=== PATIENT | male | born 1995 | race Caucasian/White ===

== ENCOUNTER 2017-06-13 20:30 | Emergency (ER) | payer MEDICAID, SELFPAY ==
[2017-06-13 20:31] VITALS: BP 140/86; PULSE 76; RESP 17; TEMP 36.4; O2SAT 97; BMI 25.9
--- NOTE | 2017-06-13 20:55 | RAD_ITS ---
STUDY: X-RAY - RIGHT KNEE REASON FOR EXAM: Male, 21 years old. Injury. TECHNIQUE: 4 view(s) of the knee. COMPARISON: None. FINDINGS: Normal visualized distal femur. Normal visualized proximal tibia and fibula. Normal proximal tibiofibular articulation. Normal medial femorotibial compartment. Normal lateral femorotibial compartment. Normal patellofemoral articulation. The soft tissue structures are unremarkable. RAD/Knee 4 or More Views IMPRESSION: No evidence of acute fracture or dislocation. Electronically Signed: Ki Carrillo DO at 21:32 EDT , Service support ,
--- NOTE | 2017-06-13 21:37 | ED.VISSUMM ---
- ER Visit Summary Date of Service: 06/13/17 Chief Complaint: Right knee injury History of Present Illness: The patient is a 21 M who presents with right knee pain after his dog ran into the front of his knee. He believes he hyperextended it. He is walking with antalgic gait. He has not taken anything for pain. He denies paresthesias. He denies hip or ankle pain. Physical Examination: Vital signs are unremarkable. Patient sitting upright in bed no acute distress. Head neck examination is unremarkable with no sign of trauma. Heart is regular rate and rhythm. Abdomen is soft nontender. Right lower extremity examination was tenderness of the anterior right knee, especially over the infrapatellar tendon. He is able to straight leg raise his foot off the bed. He has minimal edema over the anterior knee. There is no tenderness over the medial or lateral joint lines. He has good range of motion with slow purposeful movement. He has strong distal pulses. Test Results: Right knee x-rays reveal no evidence of fracture or dislocation. Emergency Department Course and Treatment: Patient declined anything for pain while here. He is given Ricky wrap and crutches. He is referred to orthopedics for follow-up if not improving. Treatment Plan: [] Disposition: Discharge Impression: Right knee contusion This note was generated with [employer] dictation software. It may contain incorrect words, spelling, and punctuation that were not noted in review of the chart prior to signing ED Disposition - Plan for ED Patient: Disposition: Home or Assisted Living Chief Complaint: Lower Extremity Injury Instructions: ED Sprain Knee Referrals: Gaby Barragan DO [STAFF PHYSICIAN] - 1 Week if not improving
[2017-06-13 21:54] VITALS: BP 121/63; PULSE 69; RESP 18; O2SAT 99
== END 2017-06-13 21:55 | disposition home or self-care (01) ==
PROVIDERS: Emergency Provider Emergency Medicine; Family Provider Family Medicine; PCP Family Medicine
DX: S80.01XA Contusion of right knee, initial encounter (principal); W54.1XXA Struck by dog, initial encounter; Y93.9 Activity, unspecified; Y92.9 Unspecified place or not applicable; Z72.0 Tobacco use
CPT/HCPCS: 73564; 99283

== ENCOUNTER 2018-08-25 19:31 | Emergency (ER) | payer OTHER, MEDICAID, SELFPAY ==
[2018-08-25 19:33] VITALS: BP 132/67; PULSE 85; RESP 17; TEMP 37.1; O2SAT 97; BMI 26.9
--- NOTE | 2018-08-25 20:12 | ED.VIS.GEN ---
History of Present Illness Chief Complaint: Ear Problem Informant: Patient Onset: Days, Weeks Current Severity: Moderate Narrative: Patient indicates he presents today with severe left ear pain in the ear is draining, he indicates he has had some pressure and pain behind his ears for some time now he was seen by ENT yesterday he was told he required tympanostomy tube left ear was scheduled for end of the month the right ear was unremarkable. And then today suddenly had increasing pain and drainage from the left ear. Indicates he has a long history of having tympanostomy tubes in both ears related to fluid collection he has had no trauma no fever no cough no URI symptoms symptoms he does have some fullness in his right ear that is really unchanged Past Medical History - Allergies and Home Meds Allergies/Adverse Reactions: Allergies No Known Allergies Allergy (Verified 08/25/18 19:31) Primary Care Physician: Sofia Ruiz [Primary Care Provider] - Past Medical History: - - Ear infections with multiple rounds of tympanostomy tubes bilaterally Smoking Status: Current every day smoker Review of Systems General: Denies: Chills, Fever, Sweats Eyes: Denies: Visual changes - bilaterally, Diplopia ENT: Reports: Bilateral ear pain, Left ear pain. Denies: Rhinorrhea, Sore throat Cardiovascular: Denies: Chest pain, Palpitations Respiratory: Denies: Dyspnea, Cough, Dyspnea on exertion Gastrointestinal: Denies: Abdominal pain, Nausea, Vomiting, Diarrhea, Melena, Hematochezia Genitourinary: Denies: Dysuria, Hematuria, Frequency Musculoskeletal: Denies: Back pain, Extremity Pain Skin: Denies: Rash, Wounds Neurological: Denies: Headache, Weakness, Numbness Physical Exam Vital Signs/Narrative: Vital Signs Temp Pulse Resp BP Pulse Ox 08/25/18 19:33 98.7 F 85 17 132/67 H 97 Inital Vital Signs reviewed: Yes General: Well nourished, Well developed, No Acute Distress, - - He has obvious drainage from the left canal I cannot see the left TM because of the drainage, thin watery fluid, the right TM has appears to be serous effusion the nose and HEENT exam unremarkable neck is very supple the rest of his general medical exam is unremarkable see the above Head: Normocephalic, Atraumatic Eyes: Perrl, EOMI ENT: Moist mucous membranes, No rhinorrhea Neck: Supple, Nontender Cardiovascular: Regular rate, Regular rhythm, No murmurs Respiratory: No distress, CTA bilaterally, Chest nontender Abdomen: Soft, Nontender, Nondistended, Normal bowel sounds Back: Nontender, Normal Inspection Extremities: Nontender, No edema Skin: Normal color, No rash Neurological: Alert, Oriented x3, Cranial nerves II-XII grossly intact, Normal Strength, Normal Sensation Psychological: Normal affect, Normal Mood Diagnostic/Tx/Re-eval - Medical Decision Making Given all of the above I explained the patient I believe he has a ruptured TM likely from the fluid that collected etc. he was started on amoxicillin Naprosyn, he will contact his ENT physicians tomorrow follow-up with them make them aware of the above and return for change in symptoms Final impression Left TM rupture with drainage of fluid ED Disposition - Plan for ED Patient: Diagnosis: Otitis media, serous, TM rupture Instructions: ED Rupture Eardrum Infec Prescriptions: Naproxen [Naprosyn] 500 mg PO BID PRN #20 tab Amoxicillin 500 mg PO TID #30 tab Referrals: Sofia Ruiz [Primary Care Provider] -
[2018-08-25] MEDS: Naproxen 500 MG Tablet PO (20:20)
[2018-08-25] MEDS: HYDROcodone Bitartrate/Apap 5/325 Tablet PO (20:20)
[2018-08-25] MEDS: AMOXICILLIN 500 MG CAPSULE PO (20:20)
[2018-08-25 20:51] VITALS: RESP 18
== END 2018-08-25 21:30 | disposition home or self-care (01) ==
PROVIDERS: Emergency Provider Emergency Medicine; Family Provider Family Medicine; PCP Family Medicine
DX: H65.92 Unspecified nonsuppurative otitis media, left ear (principal); H72.92 Unspecified perforation of tympanic membrane, left ear; F17.200 Nicotine dependence, unspecified, uncomplicated
CPT/HCPCS: 99283

== ENCOUNTER 2021-01-03 22:40 | Emergency (ER) | payer MEDICAID, SELFPAY ==
[2021-01-03 22:40] VITALS: BP 131/77; PULSE 71; RESP 16; TEMP 35.7; O2SAT 100; BMI 26.3
--- NOTE | 2021-01-03 23:16 | EDS_ITS ---
HPI History of Present Illness Chief Complaint: Eye Problem Informant: patient Onset/Context/Timing Location: Left Eye Onset: Days (5 days) Associated Symptoms Associated Symptoms - Eyes: Redness and - (Watering) Narrative Narrative: Patient presents secondary to piece of metal in his left eye for the past 5 days. He was working at home when he got metal in his eye. Denies some slight irritation and watering. No vision change. He does have glasses that he wears occasionally. No contacts. PFSH PFSH Medical History no medical history no medical history Home Medications amoxicillin 500 mg PO TID #30 tab 08/25/18 [Rx Last Taken Unknown] naproxen 500 mg PO BID PRN #20 tab 08/25/18 [Rx Last Taken Unknown] Allergy/AdvReac Type Severity Reaction Status Date / Time No Known Allergies Allergy Verified 08/25/18 19:31 Social History Smoking Status: Current every day smoker tobacco type: cigarettes ROS ROS ED Constitutional Constitutional ED: Denies chills or fever(s) Eyes Eyes: Reports other Details: Left eye irritation and watering ; Denies change in vision ENT ENT ED: Denies sore throat Cardiovascular Cardiovascular: Denies chest pain Respiratory/Chest Respiratory/Chest: Denies cough or dyspnea Gastrointestinal Gastrointestinal: Denies abdominal pain Neurologic Neurologic: Denies headache(s) Allergic/Immunologic Allergic/Immunologic ED: Denies urticaria EXAM Physical Exam Const Vital Signs: 01/03/21 22:40 Temperature 96.2 F L Temperature Source Temporal Pulse Rate 71 Respiratory Rate 16 Blood Pressure 131/77 H Blood Pressure Mean 95 Pulse Ox 100 Oxygen Delivery Method Room Air Positive well nourished and well developed General Appearance ED: well developed HEENT atraumatic Eyes Eyelid: other Other Details: Mild eyelid edema on the left. Conjunctiva: other Other Details: Conjunctival injection on the left with small metallic foreign body noted around the 2 or 3 o'clock position. Pupil: PERRL Direct Ophthalmoscopy: normal light reflex Neck supple Resp normal respiratory effort and clear to auscultation bilaterally Cardio regular rate and regular rhythm GI non-tender Palpation: soft Neuro oriented x3 Sensorium / Orientation: alert Skin Rashes: no rashes [facility] Treatment and Re-Evaluation Comments:: Tetracaine drops applied to the left eye. 22-gauge needle used to try to remove metallic foreign body. Small piece of the foreign body was removed but rust ring remains. Patient be given gentamicin eyedrops. I will speak with ophthalmology first thing in the morning to have patient followed up in the office. Discharge Plan Triage Chief Complaint: Eye Problem ED Provider: Anne Marie Andrade Dx/Rx/DC Orders Clinical Impression: Acute foreign body of cornea, Corneal rust ring Instructions: ED RUST RING Prescriptions: No Action amoxicillin 500 MG tablet 500 mg PO TID Qty: 30 RF: 0 naproxen 500 MG tablet 500 mg PO BID PRN Qty: 20 RF: 0 Primary Care Provider: Care Physician,No Primary Referrals: Jovon Laurent MD [STAFF PHYSICIAN] - 1 Day Care Physician,No Primary [Primary Care Provider] - Activity Restrictions/Additional Instructions: Call Dr. Laurent's office at 8 AM. I will speak with them to help arrange close follow-up. I anticipate you will be seen in the office tomorrow. Disposition Disposition: Home, Self Care
[2021-01-03] MEDS: Tetracaine 0.5% Ophthalmic Bottle 1 DRP LEFT EYE (23:31)
[2021-01-03] MEDS: Gentamicin Sulfate 1 OPTH.BTL 2 DRP LEFT EYE (23:49)
== END 2021-01-03 23:53 | disposition home or self-care (01) ==
PROVIDERS: Emergency Provider Emergency Medicine
DX: T15.02XA Foreign body in cornea, left eye, initial encounter (principal); X58.XXXA Exposure to other specified factors, initial encounter; Y93.9 Activity, unspecified; Y92.009 Unspecified place in unspecified non-institutional (private) residence as the place of occurrence of the external cause; Y99.8 Other external cause status; F17.210 Nicotine dependence, cigarettes, uncomplicated
CPT/HCPCS: 65220; 99282

== ENCOUNTER 2021-03-24 17:56 | Inpatient (IN) | payer MEDICAID, SELFPAY ==
[2021-03-24 17:59] VITALS: BP 133/76; PULSE 76; RESP 16; TEMP 36.2; O2SAT 100; BMI 24.6
[2021-03-24 19:57] VITALS: BP 132/77
[2021-03-24] MEDS: 0.9% Normal Saline 1,000 ML 1000 ML IV (20:41)
[2021-03-24 20:49] LABS: Absolute Lymphocyte Count 3.21 X10^3/uL (0.83-4.51); Absolute Neutrophil Count 7.5 X10^3/uL (2.0-7.7); Basophil# 0.06 X10^3/uL; Basophil% 0.5 % (0-1); Eosinophil# 0.55 X10^3/uL; Eosinophils% 4.5 % (0-5); Hematocrit 39.4 % (40-54); Hemoglobin 13.8 g/dL (13.0-16.5); Lymphocyte # 3.21 X10^3/ul (0.83-4.51); Lymphocyte % 26.1 % (19-41); Mean Corpuscular Hgb 30.7 pg (27.0-32.0); Mean Corpuscular Volume 87.8 fL (80-94); Mean Platelet Vol. 9.1 fl (6.2-12.0); Monocyte% 8.1 % (0-10); NRBC Flagged by Analyzer 0 % (0-5); Neutrophil # 7.45 X10^3/uL (2.7-7.7); Neutrophil % 60.6 % (47-70); Platelet Count 191 K/mm3 (150-450); RBC Distribution Width CV 12.3 % (11.6-14.6); RBC Distribution Width SD 39.7 fl (35.1-43.9); Red Blood Count 4.49 M/mm3 (4.6-6.2); White Blood Count 12.3 K/mm3 (4.4-11.0)
[2021-03-24 21:22] LABS: Anion Gap 7 (5-15); BUN 10 mg/dL (7-18); BUN/Creat Ratio 11.1 RATIO (10-20); CPK Total, Creatine Kinase 264 U/L (39-308); Calcium,Total 8.3 mg/dL (8.5-10.1); Chloride 111 mmol/L (98-107); EST Glomerular Filtration Rate 108 mL/min (>60); Est Glom Filt Rate - Afr Amer 131 mL/min (>60); Estimated Creatinine Clearance 144.61 ml/min; Glucose 89 mg/dL (74-106); Sodium Level 144 mmol/L (136-145)
[2021-03-24 21:57] LABS: Bacteria 0 SEEN /hpf (None Seen); Mucous, Urine 0 SEEN /hpf (<or=2+); Red Blood Cells-Urine 0 SEEN /hpf (0-5); Squamous Epithelial Cells - UA 0 SEEN /hpf (0-5); White Blood Cells 0 SEEN /hpf (0-5)
[2021-03-24 22:00] LABS: Color, Urine Yellow (Yellow); Glucose, Dipstick Normal (Normal); Ketone-Dipstick Negative (Negative); Leukocyte Esterase-Dipstick Negative /ul (Negative); Nitrite-Dipstick Negative (Negative); Occult Blood-Urine Negative /ul (Negative); Protein-Dipstick Negative (Negative); Urine Bilirubin Dipstick Negative (Negative); Urine Clarity Clear (Clear); Urine Urobilinogen Normal (Normal); Urine pH 6.5 (5.0 - 8.0)
[2021-03-24 22:35] LABS: Magnesium 2.2 mg/dL (1.6-2.6)
[2021-03-24] MEDS: Potassium Chloride 10mEq/100mL 10 MEQ/100 ML IV.SOLN. 100 MEQ IV BOLUS ×2 (22:45→23:57)
--- NOTE | 2021-03-24 22:48 | HP.PCM.HOS_ITS ---
HPI - General General Date of Admission: 03/24/21 HPI Narrative LUIS ANGEL LANDAVERDE, is a 25 M with a significant history of degenerative disc disease and tobacco abuse who presents to emergency department with progressively worsening weakness that started on the same day of presentation. Patient is too weak that getting up has become a chore. He reports a decrease strength in his bilateral arms. Report although he can move his legs he is unable to move his thighs. He had some back pain recently but it has resolved. He report that previously he had the same symptoms before but at that time it was after he was given steroids. Patient is on no home medications. [facility] Medical History DDD (degenerative disc disease) Smoker Home Medications NK 03/24/21 [History Last Taken Unknown] Allergy/AdvReac Type Severity Reaction Status Date / Time No Known Allergies Allergy Verified 03/24/21 18:03 Family History Other Diabetes Surgical History History of tonsillectomy History of tympanoplasty Social History Smoking Status: Current every day smoker tobacco type: cigarettes ROS ROS Narrative Constitutional: Denies fever, chills, fatigue, anorexia and change in weight Eyes: Denies blurry vision, change in eye color, change in vision, discharge from eye(s), double vision, erythema, eye pain, loss of vision or other HEENT: Denies abnormal hearing, dysphagia, ear pain, epistaxis, headache(s), hearing loss, nasal congestion, nasal discharge, post nasal drip, sinus pressure, sore throat or other Cardiovascular: Denies chest pain or palpitations. Denies dyspnea on exertion, orthopnea and paroxysmal nocturnal dyspnea Respiratory/Chest: Denies cough, excessive phlegm production, shortness of breath with exertion and wheezing Gastrointestinal: Denies abdominal pain, coffee ground emesis, constipation, diarrhea, dyspepsia, hematemesis, hematochezia, loose stools, melena, nausea, vomiting or other Genitourinary: Denies burning urination, difficulty urinating, dysuria, hematuria, nocturia, urinary frequency, urinary hesitancy, urinary incontinence, urinary urgency or other Musculoskeletal: Denies arthralgias, back pain, joint pain, joint stiffness, joint swelling, myalgias, neck pain or other Neurologic: Denies abnormal speech, confusion, disequilibrium, dizziness, focal weakness, headache(s), numbness, paresthesias, seizure-like activity, seizures, syncope, tingling, tremor(s) or other Psychiatric: Denies anxiety, depression, homicidal ideation, suicidal ideation or other Endocrinology: Denies change in body appearance, cold intolerance, excessive sweating, heat intolerance, polydipsia, polyuria or other Hematologic/Lymphatic: Denies anemia, easy bleeding, easy bruising, lymphadenopathy or other Integumentary: Denies rashes Allergic/Immunologic: Denies rhinitis, hives, eczema, asthma or other Vital Signs Vital Signs Vital Signs: 03/24/21 17:59 03/24/21 19:57 Temperature 97.2 F L Temperature Source Temporal Pulse Rate 76 Respiratory Rate 16 Blood Pressure 133/76 H 132/77 H Blood Pressure Mean 95 95 Pulse Ox 100 Oxygen Delivery Method Room Air Weight Weight: 87.09 kg Body Mass Index (BMI) 24.6 Physical Exam Narrative Physical exam: General: Well-nourished, well-developed. Head: Normocephalic, atraumatic, no tenderness Eyes: PERRLA, EOMI ENT, no trauma, moist mucous membranes, no rhinorrhea Neck: Nontender, full range of motion, no spinal tenderness, deformities, step-off CVS: Regular rate and rhythm. S1-S2 present. No murmur, gallop or rub. Respiratory : clear to auscultation bilaterally, chest wall nontender, no wheezing Abdomen: Soft, nontender, nondistended, normal bowel sounds, no masses : Deferred Back: Nontender, no CVA tenderness, no midline spinal tenderness, deformities, step-offs Extremities: Restricted range of motion of bilateral legs. Strength in left upper and left lower extremity 5 out of 5. Strength in right upper and right lower extremity 4 out of 5. Unable to move bilateral thighs against gravity Skin: Normal color, no trauma, abrasions Neuro: Alert, oriented, cranial nerves II through XII grossly intact. Psychiatry: Normal mood. Normal affect. Not depressed. Not anxious. Results Lab / Micro Data Result Diagrams: 03/24/21 20:36 03/24/21 20:36 Labs: Laboratory Results - last 24 hr 03/24/21 20:36: WBC 12.3 H, RBC 4.49 L, Hgb 13.8, Hct 39.4 L, MCV 87.8, MCH 3 0.7, MCHC 35.0, RDW Std Deviation 39.7, RDW Coeff of [place]hane 12.3, Plt Count 191, MPV 9.1, Immature Gran % (Auto) 0.200, Neut % (Auto) 60.6, Lymph % (Auto) 26.1, [place] % (Auto) 8.1, Eos % (Auto) 4.5, Baso % (Auto) 0.5, Absolute Neuts (auto) 7.5, Absolute Lymphs (auto) 3.21, Nucleated RBC % 0 03/24/21 20:36: Sodium 144, Potassium 2.0 L*, Chloride 111 H, Carbon Dioxide 26.0, Anion Gap 7, BUN 10, Creatinine 0.90, Estim Creat Clear Calc 144.61, Est GFR (MDRD) Af Amer 131, Est GFR (MDRD) Non-Af 108, BUN/Creatinine Ratio 11.1, Glucose 89, Calcium 8.3 L, Total Creatine Kinase 264 03/24/21 20:36: Magnesium 2.2 03/24/21 21:51: Urine Color Yellow, Urine Clarity Clear, Urine pH 6.5, Ur Specific [place] 1.010, Urine Protein Negative, Urine Glucose (UA) Normal, Urine Ketones Negative, Urine Occult Blood Negative, Urine Nitrite Negative, Urine Bilirubin Negative, Urine Urobilinogen Normal, Ur Leukocyte Esterase Negative, Urine RBC 0 SEEN, Urine WBC 0 SEEN, Ur Squamous Epith Cells 0 SEEN, Urine Bacteria 0 SEEN, Urine Mucus 0 SEEN Micro: Microbiology 03/24/21 20:36 Interface Orders SARS-CoV-2 Antigen (Rapid) - Final Assessment & Plan Assessment/Plan (1) Hypokalemia: (2) Bradycardia: (3) Paralysis: PLAN: Paralysis due to hypokalemia. Emergent department labs 0. Magnesium level 2.2. Query hypokalemia parotic paralysis. Received p.o. and IV potassium supplementation at the emergency department. Will place on scheduled potassium supplementation. Trend BMP. PT and OT to work with patient. Bradycardia EKG and telemetric strip showed sinus bradycardia. Potassium replacement as above. Admit today to progressive care unit and placed on telemetry. Leukocytosis Review of labs showed white count of 12.3. Likely reactive. Trend. DVT prophylaxis: With decreased mobility patient is at risk of DVT. Lovenox ordered. Charges/Coding Visit Charges Inpatient E&M: 84137 Init Hosp L2
[2021-03-24 23:02] VITALS: BP 112/73; PULSE 56; RESP 16; O2SAT 97
--- NOTE | 2021-03-24 23:40 | EX.ED.DYSGE1 ---
HPI History of Present Illness Chief Complaint: Lower Extremity Injury Informant: patient and spouse/S.O. Narrative Narrative: Patient is a 25-year-old male presenting with leg numbness, difficulty moving his legs. He notes he had some mild back pain for the past few days but that is pretty much resolved. This morning when he woke up he felt that his arms and legs were both weak. He could not really lift up his legs and had a hard time moving his arms. He notes that when he does stand up he feels aching. He is unable to lift his knees up. He denies any new physical activities. 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 He denies any urinary symptoms specifically any bowel or bladder incontinence. He denies any saddle anesthesia. Denies any rash. He denies any recent illnesses, fevers or vaccinations. He notes he is having similar a while back where he was having pain in his muscle and he was given steroids and a muscle relaxer and he seemed to get better but he notes he did not have the degree of weakness that he currently has. He denies any other complaints at this time. [facility] Medical History DDD (degenerative disc disease) Smoker Home Medications NK 03/24/21 [History Last Taken Unknown] Allergy/AdvReac Type Severity Reaction Status Date / Time No Known Allergies Allergy Verified 03/24/21 18:03 Family History Other Diabetes Surgical History History of tonsillectomy History of tympanoplasty Social History Smoking Status: Current every day smoker tobacco type: cigarettes ROS ROS ED Constitutional Constitutional ED: Denies chills or fever(s) Eyes Eyes: Denies blurry vision or change in vision ENT ENT ED: Denies rhinorrhea or sore throat Cardiovascular Cardiovascular: Denies chest pain or palpitations Respiratory/Chest Respiratory/Chest: Denies cough or dyspnea Gastrointestinal Gastrointestinal: Denies abdominal pain, nausea or vomiting Genitourinary Genitourinary ED: Denies dysuria, hematuria or urinary frequency Musculoskeletal Musculoskeletal: Reports back pain and myalgias; Denies arthralgias or neck pain Integumentary Denies rash Neurologic Neurologic: Reports weakness; Denies headache(s) or paresthesias Psychiatric Psychiatric: Denies depression EXAM Physical Exam Const Vital Signs: 03/24/21 17:59 03/24/21 19:57 03/24/21 23:02 Temperature 97.2 F L Temperature Source Temporal Pulse Rate 76 56 L Respiratory Rate 16 16 Blood Pressure 133/76 H 132/77 H 112/73 Blood Pressure Mean 95 95 86 Pulse Ox 100 97 Oxygen Delivery Method Room Air Room Air Positive well nourished and well developed General Appearance ED: well developed HEENT Reports TM's clear and moist mucous membranes Negative for tenderness Tympanic Membrane ED: Yes TM's clear Eyes PERRL and EOMs intact bilaterally Neck no lymphadenopathy and supple Neck Narrative: No meningeal signs Chest Wall inspection of chest normal Resp normal respiratory effort and clear to auscultation bilaterally Cardio regular rate, regular rhythm and no murmurs Rate: other Other Details: 2+ radial and DP pulses GI normal to inspection, nondistended, normoactive bowel sounds and no masses Back/Spine no CVA tenderness Lumbar Spine / Lower Back: Negative for lumbar spinal tenderness Extremity normal to inspection Extremity Narrative: Patient has 5 out of 5 strength in all dermatomes of the upper extremities. He has 4-5 strength with plantar dorsiflexion of the feet. He has 4 out of 5 strength with extension and flexion of the lower legs. Patient is not able to lift his legs off the bed against gravity. General Extremety ED: Negative for edema or tenderness General Extremity: Negative for edema Neuro oriented x3 and no sensory deficits noted Neuro Narrative: Lower extremity weakness greater than upper extremity weakness. 2+ patellar reflexes bilaterally. No clonus of the ankles appreciated. Sensorium / Orientation: alert Motor Exam: general weakness Psych mental status grossly normal Skin no rashes or lesions noted and no wounds MDM MDM MDM Narrative Medical decision making narrative: Patient evaluated for 1 day of extremity weakness, lower extremities worse in the upper. His compartments are soft. His neurologic exam is notable for weakness of the lower extremities most pronounced in his quadriceps. Upper extremities have normal strength on exam. Patient is able to stand up with assistance. He is hemodynamically stable. He is not complaining of any significant pain. He does not have any findings concerning for cauda equina syndrome. Differential includes electrolyte abnormality, rhabdomyolysis and less likely myositis or GBS or some other neurologic process. He is found to have a mild leukocytosis of 12.3 and a profound hypokalemia of 2.0. Magnesium is normal. CK is normal. Kidney function is normal. He has a mild hypocalcemia of 8.3. I suspect his weakness is associated with his hypokalemia. He is started on replacement. EKG obtained which shows sinus bradycardia at a rate of 42 . Patient is placed on telemetry monitoring. He will be admitted for further potassium replacement and evaluation of his weakness. Patient I think emergent MRI or LP is indicated at this time. Lab Data Labs: Laboratory Results - last 24 hr 03/24/21 03/24/21 03/24/21 20:36 20:36 20:36 WBC 12.3 H RBC 4.49 L Hgb 13.8 Hct 39.4 L MCV 87.8 MCH 30.7 MCHC 35.0 RDW Std Deviation 39.7 RDW Coeff of Berhane 12.3 Plt Count 191 MPV 9.1 Immature Gran % (Auto) 0.200 Neut % (Auto) 60.6 Lymph % (Auto) 26.1 [place] % (Auto) 8.1 Eos % (Auto) 4.5 Baso % (Auto) 0.5 Absolute Neuts (auto) 7.5 Absolute Lymphs (auto) 3.21 Nucleated RBC % 0 Sodium 144 Potassium 2.0 L* Chloride 111 H Carbon Dioxide 26.0 Anion Gap 7 BUN 10 Creatinine 0.90 Estim Creat Clear Calc 144.61 Est GFR (MDRD) Af Amer 131 Est GFR (MDRD) Non-Af 108 BUN/Creatinine Ratio 11.1 Glucose 89 Calcium 8.3 L Magnesium 2.2 Total Creatine Kinase 264 Urine Color Urine Clarity Urine pH Ur Specific [place] Urine Protein Urine Glucose (UA) Urine Ketones Urine Occult Blood Urine Nitrite Urine Bilirubin Urine Urobilinogen Ur Leukocyte Esterase Urine RBC Urine WBC Ur Squamous Epith Cells Urine Bacteria Urine Mucus 03/24/21 21:51 WBC RBC Hgb Hct MCV MCH MCHC RDW Std Deviation RDW Coeff of Berhane Plt Count MPV Immature Gran % (Auto) Neut % (Auto) Lymph % (Auto) [place] % (Auto) Eos % (Auto) Baso % (Auto) Absolute Neuts (auto) Absolute Lymphs (auto) Nucleated RBC % Sodium Potassium Chloride Carbon Dioxide Anion Gap BUN Creatinine Estim Creat Clear Calc Est GFR (MDRD) Af Amer Est GFR (MDRD) Non-Af BUN/Creatinine Ratio Glucose Calcium Magnesium Total Creatine Kinase Urine Color Yellow Urine Clarity Clear Urine pH 6.5 Ur Specific [place] 1.010 Urine Protein Negative Urine Glucose (UA) Normal Urine Ketones Negative Urine Occult Blood Negative Urine Nitrite Negative Urine Bilirubin Negative Urine Urobilinogen Normal Ur Leukocyte Esterase Negative Urine RBC 0 SEEN Urine WBC 0 SEEN Ur Squamous Epith Cells 0 SEEN Urine Bacteria 0 SEEN Urine Mucus 0 SEEN Rhythm Strip Rhythm Strip: Sinus Rhythm Rate: 42 Ectopy: None EKG Initial EKG: Attestation: I personally reviewed and interpreted this EKG as follows: Interpretation: Sinus Bradycardia Comments: Sinus bradycardia at a rate of 42 Normal axis Normal QRS and QTc No obvious U wave. Normal ST segments Discharge Plan Triage Chief Complaint: Lower Extremity Injury ED Provider: Norma Acosta Dx/Rx/DC Orders Clinical Impression: Hypokalemia, Bradycardia, Paralysis Prescriptions: No Action NK RF: 0 Primary Care Provider: Care Physician,No Primary Referrals: Care Physician,No Primary [Primary Care Provider] -
[2021-03-25] VITALS (11 sets, daily range): BP systolic 119–137; BP diastolic 57–79; PULSE 43–70; RESP 16–18; TEMP 36.7–37; O2SAT 98–100; BMI 28.1
--- NOTE | 2021-03-25 00:23 | PCS.PANDOC ---
PANDEMIC DOCUMENTATION INITIATED: 03/25/21 0000
[2021-03-25] MEDS: Potassium Chloride 10mEq/100mL 10 MEQ/100 ML IV.SOLN. 100 MEQ IV BOLUS ×4 (01:08→12:15)
[2021-03-25] MEDS: Potassium Chloride Oral Tablet 20 MEQ 40 MEQ PO ×3 (01:45→18:34)
[2021-03-25 06:26] LABS: Absolute Lymphocyte Count 2.86 X10^3/uL (0.83-4.51); Absolute Neutrophil Count 5.1 X10^3/uL (2.0-7.7); Basophil# 0.05 X10^3/uL; Basophil% 0.5 % (0-1); Eosinophil# 0.57 X10^3/uL; Eosinophils% 6.1 % (0-5); Hematocrit 37.3 % (40-54); Hemoglobin 12.8 g/dL (13.0-16.5); Lymphocyte # 2.86 X10^3/ul (0.83-4.51); Lymphocyte % 30.9 % (19-41); Mean Corp Hgb Conc 34.3 g/dL (32-36); Mean Corpuscular Hgb 30.5 pg (27.0-32.0); Mean Corpuscular Volume 88.8 fL (80-94); Mean Platelet Vol. 9.6 fl (6.2-12.0); Monocyte# 0.72 X10^3/uL; Monocyte% 7.8 % (0-10); NRBC Flagged by Analyzer 0 % (0-5); Neutrophil # 5.05 X10^3/uL (2.7-7.7); Neutrophil % 54.5 % (47-70); Platelet Count 167 K/mm3 (150-450); RBC Distribution Width CV 12.4 % (11.6-14.6); RBC Distribution Width SD 40.2 fl (35.1-43.9); White Blood Count 9.3 K/mm3 (4.4-11.0)
[2021-03-25 07:01] LABS: Anion Gap 5 (5-15); BUN 9 mg/dL (7-18); BUN/Creat Ratio 10.7 RATIO (10-20); Calcium,Total 8.1 mg/dL (8.5-10.1); Chloride 116 mmol/L (98-107); Creatinine, Serum 0.84 mg/dL (0.70-1.30); EST Glomerular Filtration Rate 117 mL/min (>60); Est Glom Filt Rate - Afr Amer 141 mL/min (>60); Estimated Creatinine Clearance 150.61 ml/min; Glucose 119 mg/dL (74-106); Potassium 2.4 mmol/L (3.5-5.1); Sodium Level 145 mmol/L (136-145)
[2021-03-25 11:07] LABS: Phosphorus 2.3 mg/dL (2.5-4.9)
--- NOTE | 2021-03-25 11:40 | CASEMGMT ---
JOSE ROBERTO HUBBARD assessment: Face to Face with patient for initial transition planning/care coordination assessment. JOSE ROBERTO HUBBARD introduced self and role at [facility], pt voices understanding and consents to assessment. Pt is sitting up in bed in no distress on room air. Pt is A/Ox4 and answers all questions appropriately. Pt's sig other at bedside during assessment. Care providers, pharmacy, and demographics verified. Presentation: Pt c/o back pain with increasing extremity weakness Admitting dx: Severe hypokalemia, weakness PCP: Pt states does not have PCP but plans to get set up with someone in-network with his [facility] Specialists: Pt states no current specialists. Preferred Pharmacy: [facility] Insurance: [facility] Prescription Benefit: [facility] Living Will/HPOA: Pt does not have LW/HPOA but sig other is interested in info at this time. Pt/sig other both provided with AD info. LNOK: Glenys Gandara, sig other; Thomas Calderon, father Living Arrangements: Pt lives with family in 1 story home and states no concerns at home. Pt is independent with ADL's. Pt states weakness has already improved and pt feels mostly back to normal. Transportation: Pt states drives self and states no transportation concerns. DME/HHC: Pt has no current DME or need for any further DME. Pt states no hx of HHC or SNF. Pt states no concerns with going home at time of discharge. Pt works daytime caregiver. Pt states does smoke pack cigarettes daily but does not drink ETOH. Pt voices no further concerns/needs. CM to follow for any further discharge planning/needs. Advised pt to ask for CM if any further questions/concerns/needs arise, voices understanding. Pt Goal: [place] Plan[place] JOSE ROBERTO HUBBARD
--- NOTE | 2021-03-25 12:15 | PN.HOSP_ITS ---
Documented by User: SAUL Mcdonnell 03/25/21 12:19 Subjective Subjective Patient seen and examined. Patient lying in bed no distress noted. Patient reports improvement in weakness and muscle cramps. Objective Data Objective Data Vital Signs: Vital Signs Temp Pulse Resp BP Pulse Ox 98.2 F 66 18 135/79 H 100 03/25/21 08:45 03/25/21 08:45 03/25/21 08:45 03/25/21 08:45 03/25/21 08:45 Oxygen Delivery Method Room Air Weight: 213 lb 3.2 oz Body Mass Index (BMI) 28.1 Intake & Output: Intake and Output for Last 24 Hours 03/23/21 03/24/21 03/25/21 23:59 23:59 23:59 Intake Total 1100 / 1100 884.75 / 884.75 Balance 1100 / 1100 884.75 / 884.75 Lab / Micro Data Result Diagrams: 03/25/21 05:41 03/25/21 17:14 Labs: Laboratory Results - last 24 hr 03/24/21 20:36: WBC 12.3 H, RBC 4.49 L, Hgb 13.8, Hct 39.4 L, MCV 87.8, MCH 30.7, MCHC 35.0, RDW Std Deviation 39.7, RDW Coeff of [place] 12.3, Plt Count 191, MPV 9.1, Immature Gran % (Auto) 0.200, Neut % (Auto) 60.6, Lymph % (Auto) 26.1, [place] % (Auto) 8.1, Eos % (Auto) 4.5, Baso % (Auto) 0.5, Absolute Neuts (auto) 7.5, Absolute Lymphs (auto) 3.21, Nucleated RBC % 0 03/24/21 20:36: Sodium 144, Potassium 2.0 L*, Chloride 111 H, Carbon Dioxide 26.0, Anion Gap 7, BUN 10, Creatinine 0.90, Estim Creat Clear Calc 144.61, Est GFR (MDRD) Af Amer 131, Est GFR (MDRD) Non-Af 108, BUN/Creatinine Ratio 11.1, Glucose 89, Calcium 8.3 L, Total Creatine Kinase 264 03/24/21 20:36: Magnesium 2.2 03/24/21 21:51: Urine Color Yellow, Urine Clarity Clear, Urine pH 6.5, Ur Spec ific [place] 1.010, Urine Protein Negative, Urine Glucose (UA) Normal, Urine Ketones Negative, Urine Occult Blood Negative, Urine Nitrite Negative, Urine Bilirubin Negative, Urine Urobilinogen Normal, Ur Leukocyte Esterase Negative, Urine RBC 0 SEEN, Urine WBC 0 SEEN, Ur Squamous Epith Cells 0 SEEN, Urine Bacteria 0 SEEN, Urine Mucus 0 SEEN 03/25/21 05:41: WBC 9.3, RBC 4.20 L, Hgb 12.8 L, Hct 37.3 L, MCV 88.8, MCH 30.5, MCHC 34.3, RDW Std Deviation 40.2, RDW Coeff of [place] 12.4, Plt Count 167, MPV 9.6, Immature Gran % (Auto) 0.200, Neut % (Auto) 54.5, Lymph % (Auto) 30.9, [place] % (Auto) 7.8, Eos % (Auto) 6.1 H, Baso % (Auto) 0.5, Absolute Neuts (auto) 5.1, Absolute Lymphs (auto) 2.86, Nucleated RBC % 0 03/25/21 05:41: Sodium 145, Potassium 2.4 L*, Chloride 116 H, Carbon Dioxide 24.0, Anion Gap 5, BUN 9, Creatinine 0.84, Estim Creat Clear Calc 150.61, Est GFR (MDRD) Af Amer 141, Est GFR (MDRD) Non-Af 117, BUN/Creatinine Ratio 10.7, Glucose 119 H, Calcium 8.1 L 03/25/21 05:41: Phosphorus 2.3 L Micro: Microbiology 03/24/21 20:36 Interface Orders SARS-CoV-2 Antigen (Rapid) - Final Rhythm Strip Rhythm Strip: Sinus Rhythm Rate: 42 Ectopy: None Physical Exam Const alert, oriented x3 and no apparent distress HEENT head/scalp atraumatic and moist oral mucous membranes Head and Scalp: normocephalic Eyes conjunctivae normal and no scleral icterus Neck no lymphadenopathy and supple General: trachea midline Resp normal respiratory effort, normal air movement and clear to auscultation bilaterally Effort and Inspection: able to speak in complete sentences and symmetric chest movement Cardio regular rate, regular rhythm, S1 normal heart sound and S2 normal heart sound GI normal to inspection, nondistended, normoactive bowel sounds, soft to palpation and non-tender Extremity normal to inspection, full ROM and no clubbing, cyanosis or edema Peripheral Pulses: Yes pulses 2+ throughout Skin no rashes or lesions noted and no wounds Neuro oriented x3, moves all extremities, no focal motor deficits and no sensory deficits noted Sensorium / Orientation: awake and alert Psych affect normal Assessment & Plan Assessment/Plan (1) Hypokalemia: PLAN: 1. Hypokalemia -Patient reports subjective improvement in symptoms however patient continues to be hypokalemic at 2.4 -Continue potassium chloride 40 mEq twice daily, patient will also receive 40 mEq IV potassium chloride -Recheck BMP in a.m. 2. Bradycardia -Resolved DVT prophylaxis-subcu Lovenox This patient was seen by Glenys Cameron NP-C under the supervision of Dr. Cortes. Documented by User: Dr. Elías Cortes MD 03/25/21 18:22 Objective Data Lab / Micro Data Result Diagrams: 03/25/21 05:41 03/25/21 17:14
[2021-03-25 18:01] LABS: Anion Gap 6 (5-15); BUN 10 mg/dL (7-18); BUN/Creat Ratio 10.8 RATIO (10-20); Calcium,Total 8.6 mg/dL (8.5-10.1); Chloride 111 mmol/L (98-107); Creatinine, Serum 0.93 mg/dL (0.70-1.30); EST Glomerular Filtration Rate 104 mL/min (>60); Est Glom Filt Rate - Afr Amer 126 mL/min (>60); Estimated Creatinine Clearance 136.03 ml/min; Glucose 113 mg/dL (74-106); Potassium 4.4 mmol/L (3.5-5.1); Sodium Level 144 mmol/L (136-145)
--- NOTE | 2021-03-25 18:03 | PCM.DC ---
Discharge Instructions Diet Discharge Diet: No restrictions Activity Discharge Activity: Return to Normal Activity Dressing / Incision Call your doctor if you observe: - (Muscle aches or weakness) Follow Up Care Test Results: Test results from this visit will be discussed in further detail at your follow-up appointment, if applicable. Discharge Plan Admission Admit Date/Time: 03/24/21 22:42 Primary Reason for Your Visit: Hypokalemia Attending Provider: Elías Cortes Primary Care Provider: Care Physician,No Primary Instructions Additional Instructions / Restrictions: Make sure you follow-up with your PCP within 1 week. You will need repeat lab testing to monitor your potassium levels. I would advise patient to decrease the amount of pop he is drinking as he is drinking [address] Brooke and has not properly hydrating despite having a physically demanding job. Discharge Orders/Prescriptions Prescriptions: New potassium chloride [Klor-Con M20] 20 mEq Tablet,Er Particles/Crystals 40 meq PO BIDCM 30 Days Qty: 120 RF: 0 Referrals / Follow Up: Jovon Patino MD [NON-STAFF] - Within 1 Week Care Physician,No Primary [Primary Care Provider] - Disposition Disposition (needs filled in before D/C Order can be placed): Home, Self Care
--- NOTE | 2021-03-25 18:06 | DS.PCM_ITS ---
Documented by User: SAUL Mcdonnell 03/25/21 18:09 Providers Date of Admission: 03/24/21 Primary Care Physician: No Primary Care Phys Reason For Visit: SEVERE HYPOKALEMIA, WEAKNESS Diagnosis Discharge Diagnosis (1) Hypokalemia: Status: Acute Code(s): E87.6 - Hypokalemia Medications at Discharge Home Medications potassium chloride [Klor-Con M20] 40 meq PO BIDCM 30 Days #120 tab 03/25/21 Hospital Course Operations None Procedures None Summary of Care Provided Minutes Spent on Discharge: 20 Hospital Course: Patient is a 25-year-old male who initially presented with lower extremity weakness and bilateral lower extremity muscle cramping. Patient was noted to be hypokalemic on initial presentation at 2.0. Patient initially received potassium chloride 40 mEq IV as well as was initiated on potassium 40 mEq twice daily p.o. Patient also received a one-time dose of potassium phosphate 22 mm IV. Patient's BMP was rechecked and patient was noted to have a potassium level of 4.4. Patient will be discharged home with instructions to follow-up with his PCP Jovon Patino for further lab reevaluation and monitoring of his potassium. Patient was also noted to be extremely bradycardic upon initial presentation with heart rates in the 40s. This has resolved with the administration of potassium. Physical Exam Const alert, oriented x3 and no apparent distress HEENT head/scalp atraumatic and moist oral mucous membranes Eyes conjunctivae normal and no scleral icterus Neck no lymphadenopathy and supple General: trachea midline Resp normal respiratory effort, normal air movement and clear to auscultation bilaterally Effort and Inspection: able to speak in complete sentences and symmetric chest m ovement Cardio regular rate, regular rhythm, S1 normal heart sound and S2 normal heart sound GI normal to inspection, nondistended, normoactive bowel sounds, soft to palpation and non-tender Extremity normal to inspection, full ROM and no clubbing, cyanosis or edema Skin no rashes or lesions noted and no wounds Neuro oriented x3, moves all extremities, no focal motor deficits and no sensory deficits noted Sensorium / Orientation: awake and alert Psych affect normal Weight / BMI Weight Weight: 213 lb 3.2 oz Body Mass Index (BMI) 28.1 ABG / Lab / Microbiology Data Result Diagrams: 03/25/21 05:41 03/25/21 17:14 Laboratory: Laboratory Results - last 24 hr 03/24/21 20:36: WBC 12.3 H, RBC 4.49 L, Hgb 13.8, Hct 39.4 L, MCV 87.8, MCH 30.7, MCHC 35.0, RDW Std Deviation 39.7, RDW Coeff of [place] 12.3, Plt Count 191, MPV 9.1, Immature Gran % (Auto) 0.200, Neut % (Auto) 60.6, Lymph % (Auto) 26.1, [place] % (Auto) 8.1, Eos % (Auto) 4.5, Baso % (Auto) 0.5, Absolute Neuts (auto) 7. 5, Absolute Lymphs (auto) 3.21, Nucleated RBC % 0 03/24/21 20:36: Sodium 144, Potassium 2.0 L*, Chloride 111 H, Carbon Dioxide 26.0, Anion Gap 7, BUN 10, Creatinine 0.90, Estim Creat Clear Calc 144.61, Est GFR (MDRD) Af Amer 131, Est GFR (MDRD) Non-Af 108, BUN/Creatinine Ratio 11.1, Glucose 89, Calcium 8.3 L, Total Creatine Kinase 264 03/24/21 20:36: Magnesium 2.2 03/24/21 21:51: Urine Color Yellow, Urine Clarity Clear, Urine pH 6.5, Ur Specific [place] 1.010, Urine Protein Negative, Urine Glucose (UA) Normal, Urine Ketones Negative, Urine Occult Blood Negative, Urine Nitrite Negative, Urine Bilirubin Negative, Urine Urobilinogen Normal, Ur Leukocyte Esterase Negative, Urine RBC 0 SEEN, Urine WBC 0 SEEN, Ur Squamous Epith Cells 0 SEEN, Urine Bacteria 0 SEEN, Urine Mucus 0 SEEN 03/25/21 05:41: WBC 9.3, RBC 4.20 L, Hgb 12.8 L, Hct 37.3 L, MCV 88.8, MCH 30.5, MCHC 34.3, RDW Std Deviation 40.2, RDW Coeff of [place] 12.4, Plt Count 167, MPV 9.6, Immature Gran % (Auto) 0.200, Neut % (Auto) 54.5, Lymph % (Auto) 30.9, [place] % (Auto) 7.8, Eos % (Auto) 6.1 H, Baso % (Auto) 0.5, Absolute Neuts (auto) 5.1, Absolute Lymphs (auto) 2.86, Nucleated RBC % 0 03/25/21 05:41: Sodium 145, Potassium 2.4 L*, Chloride 116 H, Carbon Dioxide 24.0, Anion Gap 5, BUN 9, Creatinine 0.84, Estim Creat Clear Calc 150.61, Est GFR (MDRD) Af Amer 141, Est GFR (MDRD) Non-Af 117, BUN/Creatinine Ratio 10.7, Glucose 119 H, Calcium 8.1 L 03/25/21 05:41: Phosphorus 2.3 L 03/25/21 17:14: Sodium 144, Potassium 4.4, Chloride 111 H, Carbon Dioxide 27.0, Anion Gap 6, BUN 10, Creatinine 0.93, Estim Creat Clear Calc 136.03, Est GFR (MDRD) Af Amer 126, Est GFR (MDRD) Non-Af 104, BUN/Creatinine Ratio 10.8, Glucose 113 H, Calcium 8.6 Microbiology: Microbiology 03/24/21 20:36 Interface Orders SARS-CoV-2 Antigen (Rapid) - Final D/C Instructions Discharge Diet: No restrictions Call your doctor if you observe: - (Muscle aches or weakness) Meaningful Use Info Meaningful Use Diagnoses (Choose all that apply): None applicable Discharge Plan Admission Admit Date/Time: 03/24/21 22:42 Primary Reason for Your Visit: Hypokalemia Attending Provider: Elías Cortes Primary Care Provider: Care Physician,No Primary Instructions Additional Instructions / Restrictions: Make sure you follow-up with your PCP within 1 week. You will need repeat lab testing to monitor your potassium levels. I would advise patient to decrease the amount of pop he is drinking as he is drinking [address] Brooke and has not properly hydrating despite having a physically demanding job. Discharge Orders/Prescriptions Prescriptions: New potassium chloride [Klor-Con M20] 20 mEq Tablet,Er Particles/Crystals 40 meq PO BIDCM 30 Days Qty: 120 RF: 0 Referrals / Follow Up: Jovon Patino MD [NON-STAFF] - Within 1 Week Care Physician,No Primary [Primary Care Provider] - Disposition Disposition (needs filled in before D/C Order can be placed): Home, Self Care Documented by User: Dr. Elías Cortes MD 03/25/21 18:26 Providers Date of Admission: 03/24/21 Reason For Visit: SEVERE HYPOKALEMIA, WEAKNESS Medications at Discharge Home Medications potassium chloride [Klor-Con M20] 40 meq PO BIDCM 30 Days #120 tab 03/25/21 ABG / Lab / Microbiology Data Result Diagrams: 03/25/21 05:41 03/25/21 17:14 Discharge Plan Admission Admit Date/Time: 03/24/21 22:42 Primary Reason for Your Visit: Hypokalemia Attending Provider: Elías Cortes Primary Care Provider: Care Physician,No Primary Instructions Additional Instructions / Restrictions: Make sure you follow-up with your PCP within 1 week. You will need repeat lab testing to monitor your potassium levels. I would advise patient to decrease the amount of pop he is drinking as he is drinking [address] Brooke and has not properly hydrating despite having a physically demanding job. Discharge Orders/Prescriptions Prescriptions: New potassium chloride [Klor-Con M20] 20 mEq Tablet,Er Particles/Crystals 40 meq PO BIDCM 30 Days Qty: 120 RF: 0 Referrals / Follow Up: Jovon Patino MD [NON-STAFF] - Within 1 Week Care Physician,No Primary [Primary Care Provider] - Disposition Disposition (needs filled in before D/C Order can be placed): Home, Self Care Charges/Coding Addendum Addendum: Dr. Cortes: I personally reviewed the chart and examined the patient, and agree with the above findings. Per HPI: LUIS ANGEL LANDAVERDE, is a 25 M with a significant history of degenerative disc disease and tobacco abuse who presents to emergency department with progressively worsening weakness that started on the same day of presentation. Patient is too weak that getting up has become a chore. He reports a decrease strength in his bilateral arms. Report although he can move his legs he is unable to move his thighs. He had some back pain recently but it has resolved. He report that previously he had the same symptoms before but at that time it was after he was given steroids. Patient is on no home medications. Hospital Course: 1. Hypokalemia bradycardia with hypokalemic periodic paralysis?25-year-old male presents to the hospital with bradycardia and significant weakness consistent with a hypokalemic periodic paralysis. He denies any nausea or vomiting with this episode but states that he does not have an appropriate diet. He eats 1 meal a day usually dinner and drinks anywhere between [address] a day. He was given a significant amount replacement and his potassium today and is currently 4.4 on repeat. Symptoms are completely resolved. I did check a phosphorus today and it was low so this was also replaced in conjunction with his potassium. I did spend about 50 minutes talking with him and his girlfriend about what a proper diet is and the need to follow-up with his PCP to have outpatient follow-up for this potassium. I discussed with him the plan for discharge today and he expressed understanding of the risk and benefits of going home and they would like to go home today. General: Alert, Oriented x3, Cooperative, No apparent distress HEENT: Atraumatic, PERRLA, EOMI, Normocephalic Oral: Moist Mucosa Neck: Supple, No JVD Lungs: Clear to auscultation, Normal air movement, No rhonchi, No wheeze, No rales Cardiovascular: Regular rate, Regular Rhythm, Normal S1, Normal S2, No murmurs Abdomen: Soft, Non Tender, Non-Distended, No Hepato-splenomegaly Extremities: No edema, Capillary Refill Less than 3 Seconds Skin: No rashes, No breakdown Musculoskeletal: No Tenderness to Palpation of Joints or Extremities Neurological: Cranial nerves II-XII grossly intact, Motor Exam 5/5 strength throughout, Sensory exam intact to light touch and pain Psych/Mental Status: Normal Affect, Appropriate Visit Charges Inpatient E&M: 27470 Disch Hosp
== END 2021-03-25 18:38 | disposition home or self-care (01) | DRG 58 ==
LOC: ED 20:28 → PCU 03-25 02:32
PROVIDERS: Nurse Practitioner Family; Admitting Provider Hospitalist; Emergency Provider Emergency Medicine; Visit Provider Family Medicine
DX: G72.3 Periodic paralysis (principal); E83.39 Other disorders of phosphorus metabolism; F17.210 Nicotine dependence, cigarettes, uncomplicated; R00.1 Bradycardia, unspecified; Z83.3 Family history of diabetes mellitus
CPT/HCPCS: 36415; 80048; 81001; 82550; 83735; 84100; 85025; 87426; 93005; 99284; J7030; J7050; A4216

== ENCOUNTER 2023-01-23 18:58 | Emergency (ER) | payer MEDICAID, SELFPAY ==
[2023-01-23 19:00] VITALS: BP 140/93; PULSE 90; RESP 22; TEMP 36.8; O2SAT 97; BMI 29.5
--- NOTE | 2023-01-23 19:22 | EX.ED.DYSGE1 ---
HPI <SAUL Hawkins - Last Filed: 01/23/23 20:01> History of Present Illness Chief Complaint: Back Narrative Narrative: 27-year-old male with no significant medical history presents to the emergency department with lower back pain, upper buttock pain. Patient states he denies any injury, he states that he did see some white discharge. Patient denies any fever chills. Patient states there is slight some redness. Patient rates the pain is worse and he feels a lot of pressure. He denies any history of IV drug abuse. He denies any history of cysts at this area. PFSH <SAUL Hawkins - Last Filed: 01/23/23 20:01> [facility] Medical History COVID-19 DDD (degenerative disc disease) Smoker Home Medications potassium chloride 20 mEq tablet,extended release(part/cryst) (Klor-Con M) 40 meq (2 x 20 mEq) PO BIDCM 30 days #120 tabs 03/25/21 [Rx Last Taken Unknown] dexamethasone 6 mg tablet (Decadron) 6 mg PO DAILY #5 tabs 09/18/21 [Rx Last Taken Unknown] cephalexin 500 mg capsule 500 mg PO Q6 #40 CAPSULES 01/23/23 [Rx Last Taken Unknown] ibuprofen 600 mg tablet 600 mg PO Q6H PRN PRN pain #20 TABLETS 01/23/23 [Rx Last Taken Unknown] sulfamethoxazole 800 mg-trimethoprim 160 mg tablet (Bactrim DS) 1 tab PO Q12H #20 tabs 01/23/23 [Rx Last Taken Unknown] Allergy/AdvReac Type Severity Reaction Status Date / Time No Known Allergies Allergy Verified 01/23/23 19:00 Family History Other Diabetes Surgical History History of tonsillectomy History of tympanoplasty Social History Smoking Status: Current every day smoker tobacco type: cigarettes ROS <SAUL Hawkins - Last Filed: 01/23/23 20:01> ROS ED ROS Narrative Constitutional: Negative for fever, chills, weight loss, weakness Eyes: Negative for vision loss, vision change, double vision ENT: Negative for any sore throat, ear pain, congestion Cardiovascular: Negative for any chest pain, tightness, palpitations Respiratory: Negative for any cough, sputum production, hemoptysis, dyspnea, dyspnea on exertion, orthopnea Gastrointestinal: Negative for any abdominal pain, nausea, vomiting, diarrhea, constipation, blood in stool, blood in vomit : Negative for any urinary frequency, dysuria, retention, blood in urine Muscle skeletal: Negative for any muscle joint pain, stiffness, myalgias, arthralgias, neck pain. Positive for pain just above the buttocks Neurological: Negative for any headache, syncope, numbness or tingling, dizziness Skin: Negative for any rashes, lumps, itching, abrasions, lacerations. Positive for pain in palpation to the skin to the top of the buttocks. Psychiatric: Negative for any depression, anxiety, stress, suicidal ideation, homicidal ideation Hematologic: Negative for any easy bruising, excessive bruising, easy bleeding Allergies: Negative for any eczema, hives, rash EXAM <SAUL Hawkins - Last Filed: 01/23/23 20:01> Physical Exam Narrative Exam Narrative: Vital signs reviewed. Patient does appear uncomfortable. HEET: Head normocephalic atraumatic, TMs clear bilaterally. Posterior pharynx is clear, moist mucous membranes. Nares clear bilaterally. Neck: Supple with no lymphadenopathy or tenderness. No signs of meningismus, negative jolt sign. Cardiac: Regular rate and rhythm no murmurs gallops or rubs, equal peripheral pulses bilaterally. Respiratory: Lungs clear to auscultation bilaterally. No chest tenderness. Abdomen: Soft, nontender, nondistended. No abdominal bruit or pulsatile masses. No hepatosplenomegaly Extremities: No peripheral edema, no signs of gross trauma or deformity. Active full range of motion of all extremities. Neuro: Cranial nerves II through XII intact, no focal neurological deficits. Skin: Clean dry and intact with no rash, purpura, petechiae, vesicles or pustules. Backs/flank: No CVA tenderness, no midline spinal tenderness, no deformity. Psych: Normal mood and affect. No SI, HI or acute psychosis. Buttocks: Patient does have induration, slight redness to the top of the left buttock. There is also some induration to the top of the right buttock. This is consistent with possible pilonidal cyst. There is no drainage noted. There is no pain along the rectus. Const Vital Signs: 01/23/23 19:00 Temperature 98.2 F Temperature Source Temporal Pulse Rate 90 Respiratory Rate 22 H Blood Pressure 140/93 H Blood Pressure Mean 108 Pulse Ox 97 Oxygen Delivery Method Room Air <Antonio Lozoya MD - Last Filed: 01/23/23 20:10> Physical Exam Const Vital Signs: 01/23/23 19:00 Temperature 98.2 F Temperature Source Temporal Pulse Rate 90 Respiratory Rate 22 H Blood Pressure 140/93 H Blood Pressure Mean 108 Pulse Ox 97 Oxygen Delivery Method Room Air [facility] <SAUL Hawkins - Last Filed: 01/23/23 20:01> [facility] Treatment and Re-Evaluation :: Patient appears generally well, patient appears nontoxic, vital signs are stable. Patient presents to the emergency department for complaining of pain to the lower back around the buttocks. I am concerned for a pilonidal cyst. Differential diagnosis includes cellulitis, pilonidal cyst, abscess formation. Patient has no history of IV drug abuse, I am not concerned for a spinal abscess. I anesthetized the area with lidocaine, 0 please a 1 cm vertical incision on the left buttock, there was induration however no gross drainage. I was able to use forceps and explore the wound and break up any loculations. Again, I did not get any gross drainage. Patient states that the procedure was painful. I did offer the patient pain medicine, he refused. Patient be treated with Bactrim, Keflex. He will be given ibuprofen. He is instructed to keep the area clean and dry, may use warm compress. He will follow-up with surgery. Patient struck to return for worsening pain, fever chills nausea vomiting. Patient will be diagnosed with pilonidal cyst <Antonio Lozoya MD - Last Filed: 01/23/23 20:10> [facility] Narrative Medical decision making narrative: Dr. Lozoya: I have personally performed a face to face assessment of the patient and have reviewed the CHITO Note. I performed a substantive portion of the visit including all aspects of the following. My da silva findings include: History is pain at top of buttocks cleft. No fevers or chills. Exam is afebrile. Vital signs noted. Nontoxic-appearing. Mild induration more towards left buttocks cleft with tenderness to palpation pilonidal cyst area. Medical Decision Making: Incision and drainage. Antibiotics. Follow-up general surgery. [id number] analgesics. I do not feel narcotics are indicated. Discharge. Other additions or changes: [None] History & Record Review Discussion w/independent historian: Patient Additional record(s) reviewed:: Prior ED visit Discharge Plan Triage Chief Complaint: Back ED Midlevel Provider: Jossue Jerry ED Provider: Antonio Lozoya Dx/Rx/DC Orders Clinical Impression: Cyst, pilonidal, with abscess Instructions: ED Abscess Incision And Drainage, ED Cyst Pilonidal Infected IandD Prescriptions: New cephalexin 500 mg capsule 500 mg PO Q6 Qty: 40 0RF sulfamethoxazole-trimethoprim [Bactrim DS] 800-160 mg tablet 1 tab PO Q12H Qty: 20 0RF ibuprofen 600 mg tablet 600 mg PO Q6H PRN PRN (Reason: pain) Qty: 20 0RF No Action dexamethasone [Decadron] 6 mg tablet 6 mg PO DAILY Qty: 5 0RF potassium chloride [Klor-Con M20] 20 mEq Tablet,Er Particles/Crystals 40 meq PO BIDCM 30 Days Qty: 120 0RF Primary Care Provider: Care Physician,No Primary Referrals: Jay Rodríguez MD [Med Staff - Active Staff] - Care Physician,No Primary [Primary Care Provider] - Activity Restrictions/Additional Instructions: you may use a warm compress. Take antibiotics until finished. Disposition Disposition: Home, Self Care
[2023-01-23] MEDS: Smz/Tmp Ds Tablet 1 TABLET PO (20:09)
[2023-01-23] MEDS: Cephalexin 250 MG Capsule 500 MG PO (20:09)
[2023-01-23 20:11] VITALS: PULSE 83; RESP 16; O2SAT 97
[2023-01-23] MEDS: Lidocaine 1% /Epi 1:100 (20ml) 20 ML Vial 3 ML INFILT (20:11)
== END 2023-01-23 20:13 | disposition home or self-care (01) ==
PROVIDERS: Emergency Provider Emergency Medicine; Visit Provider Emergency Medicine
DX: L05.01 Pilonidal cyst with abscess (principal); F17.210 Nicotine dependence, cigarettes, uncomplicated; Z86.16 Personal history of COVID-19
CPT/HCPCS: 99283